=== PATIENT | female | born 2005 | race Caucasian/White ===

== ENCOUNTER 2023-05-15 22:06 | Emergency (ER) | payer MEDICAID, SELFPAY ==
[2023-05-15 22:09] VITALS: BP 112/66; PULSE 93; RESP 18; TEMP 36.3; O2SAT 100; BMI 23.3
--- NOTE | 2023-05-15 22:31 | ED.VIS.BACK ---
HPI History of Present Illness Chief Complaint: Back Informant: patient Narrative Narrative: Yesterday, patient sustained an injury to his back. He is biologic female transgender goes by male. Apparently, he was wrestling with a friend of his, friend is with him now and passively physically reproduces his injury to show me how he was injured, which was basically lying on his back and hyperflexing at the left hip with the left lower extremity. Has had pain with movement and walking ever since. Worse today. No neurologic symptoms or pain radiating below the knee. No bowel or bladder dysfunction. No saddle anesthesia or paresthesias in the feet. No pain elsewhere, just the low back. PFSH PFSH Medical History Asthma Family History (Updated 12/02/20 @ 17:28 by Mere Maldonado NP, [employer]) Other Heart disease Hypertension Social History Smoking Status: Never smoker ROS ROS ED Constitutional Constitutional ED: Denies chills or fever(s) Gastrointestinal Gastrointestinal: Denies abdominal pain, constipation, fecal incontinence, nausea or vomiting Genitourinary Genitourinary ED: Reports other Details: no urinary retention ; Denies abdominal discomfort or urinary incontinence Musculoskeletal Musculoskeletal: Reports as per HPI and back pain; Denies neck pain Integumentary Denies rash or wounds Neurologic Neurologic: Denies headache(s), paresthesias or weakness EXAM Physical Exam Const Vital Signs: 05/15/23 22:09 Temperature 97.4 F L Temperature Source Temporal Pulse Rate 93 Respiratory Rate 18 Blood Pressure 112/66 Blood Pressure Mean 81 Pulse Ox 100 Oxygen Delivery Method Room Air Positive well nourished and well developed General Appearance ED: well developed and NAD HEENT Negative for trauma or tenderness Eyes PERRL and EOMs intact bilaterally Neck full ROM and supple GI normal to inspection, nondistended, normoactive bowel sounds, soft to palpation and non-tender Back/Spine normal to inspection Back/Spine Narrative: No midline spinal tenderness throughout. Normal inspection no sign of blunt trauma. Lumbar Spine / Lower Back: ROM limited, paraspinal muscle tenderness left and straight leg raise negative bilaterally; Negative for lumbar spinal tenderness Extremity normal to inspection, full ROM and no pedal edema Extremity Narrative: Full range of motion throughout both hips and the rest of the lower extremity joints without difficulty. Neuro oriented x3 and no sensory deficits noted Sensorium / Orientation: alert Motor Exam: strength 5/5 throughout and clonus absent Deep Tendon Reflexes: Rt Patellar (L4): 2+, Lt Patellar (L4): 2+, Rt Ankle (S1): 2+ and Lt Ankle (S1): 2+ Deep Tendon Reflexes Back: Rt Patellar (L4): 2+, Lt Patellar (L4): 2+, Rt Ankle (S1): 2+ and Lt Ankle (S1): 2+ Plantar Reflex: Downgoing: bilateral Psych mental status grossly normal and thought process normal Skin no rashes or lesions noted and no wounds MDM MDM MDM Narrative Medical decision making narrative: Reassured likely myofascial strain. Offered parenteral analgesics with IM injections, but he adamantly refuses needles and will take pills. Given a Naprosyn and a Flexeril and advised to use ibuprofen and heat at home since he was helping more than ice today. Discharge Plan Triage Chief Complaint: Back ED Provider: Ramy Heath Dx/Rx/DC Orders Clinical Impression: Acute lumbosacral myofascial strain Instructions: ED Back Sprain/Strain Primary Care Provider: Zoey Kebede NP Referrals: Zoey Kebede NP, [employer] [Primary Care Provider] - 10-14 Days if not better Activity Restrictions/Additional Instructions: Ibuprofen 600 mg twice daily or 400 mg up to every 8 hours, in addition to applying heat as needed to the affected area. May add Tylenol to this if you need they do not interact. Disposition Disposition: Home, Self Care
[2023-05-15] MEDS: Naproxen 250 MG Tablet 500 MG PO (22:43)
[2023-05-15] MEDS: cycloBENZAPRine HCl 10 MG Tablet PO (22:43)
== END 2023-05-15 22:44 | disposition home or self-care (01) ==
PROVIDERS: Emergency Provider Emergency Medicine; PCP Nurse Practitioner Family; Visit Provider Emergency Medicine
DX: S39.012A Strain of muscle, fascia and tendon of lower back, initial encounter (principal); X58.XXXA Exposure to other specified factors, initial encounter
CPT/HCPCS: 99282